=== PATIENT | female | born 2005 | race Caucasian/White ===

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

== ENCOUNTER 2023-07-13 13:28 | Outpatient (CLI) | payer BC, SELFPAY ==
--- NOTE | ~2023-07-13 | US_ITS ---
EXAMINATION: US thyroid DATE: 07/13/2023 14:31 INDICATION: Michelle thyroiditis. TECHNIQUE: Multiple ultrasound images of the thyroid were obtained. COMPARISON: None. FINDINGS: The right thyroid lobe measures 5.8 x 1.0 x 1.7 cm. The left thyroid lobe measures 4.8 x 0.8 x 1.5 c m. There is normal echotexture and echogenicity throughout the thyroid gland. No discrete nodules id entified. Normal vascular flow is present. IMPRESSION: 1. Normal thyroid. Reviewed, dictated and finalized at location E. IMPRESSION: 1. Normal thyroid.
== END 2023-07-13 13:29 | disposition home or self-care (01) ==
LOC: ANHIMG 13:29
PROVIDERS: PCP Family Medicine; Visit Provider Internal Medicine
DX: E06.3 Autoimmune thyroiditis (principal)
CPT/HCPCS: 76536

== ENCOUNTER 2024-10-09 13:19 | Emergency (ER) | payer OTHER, BC, SELFPAY ==
--- NOTE | ~2024-10-09 | CT_ITS ---
Non-contrast Head CT History: Head injury Technique: Axial non-contrast imaging of the brain was performed. Dose reduction technique was used on this scan by utilizing automated exposure control and iterative reconstruction technique. The dose -length product (DLP) was 605.33 mGy-cm. Findings: There is no evidence of intracranial hemorrhage, mass lesion, or acute infarct. Brain par enchyma appears normal. The ventricles and subarachnoid spaces are normal in size. The calvarium ap pears normal. The visualized paranasal sinuses and mastoid air cells are clear. Impression: No significant abnormality seen. Reviewed, dictated and finalized at location . Impression: No significant abnormality seen.
--- OUTSIDE RECORDS SUMMARY | 2024-10-09 13:23 | XMS_ITS | Data Portability ---
Author Organization [facility] Address [address] [place] [address] Assessment Encounter Date Assessment Date Assessment LastModified by Organization Details LastModified Time 11/16/2020 11/16/2020 discussed and encouraged to complete HPV series discussed healthy diet, exercise urine GC CT trich discussed elevated BP- stressed today, will monitor in future. Discussed the usage, side effects, risks, and benefits of OCP use. Questions answered. Prescription given for microgestin. She will start OCP with next menses and follow up for a med check in 4 mos. Not available 11/16/2020 17:05:22 03/08/2021 03/08/2021 Doing well on OCP Prescription refilled Questions answered FU for WWE in Oct depression precautions given [email or web address] Not available 03/09/2021 16:22:24 12/02/2021 12/02/2021 healthy female exam GC/CT/trich done declines further std testing pap at 19 contraception-oc p refilled. BP returned to normotensive after exam and rest. HPV done FU 1 year or prn [email or web address] Not available 12/02/2021 13:19:16 01/19/2023 01/19/2023 Annual gynecological exam performed. Patient will come back in a year unless there are new symptoms. [email or web address] Not available 01/19/2023 16:12:10 Plan of Treatment Reminders Order Date Submit Date Provider Last Modified By Organization Details Last Modified Time Details Appointments None recorded. Lab None recorded. Referral None recorded. Procedures None recorded. Surgeries None recorded. Imaging None recorded. Medication Orders Blisovi Fe 04/14 (28) 1 mg-20 mcg (21)/75 mg (7) tablet 2021 022 [facility] #[id number], [address], [place], [place], [id number], 13:20:43 Aurovela Fe 1-20 (28) 1 mg-20 mcg (21)/75 mg (7) tablet 2020 021 [facility] #[id number], [address], [place], [place], [id number], 17:24:26 Microgestin FE 1/20 (28) 1 mg-20 mcg (21)/75 mg (7) tablet 2020 021 [facility] #[id number], [address] , [place], [place], [id number], 17:05:45 Patient TargetsNo targets recorded. Patient InstructionsNo instructions recorded. Reason for Referral None Reported. Results Created Date Observation Date Name Description Value Unit Range Abnormal Flag Note LastModifiedBy Organization Detail LastModifiedTime 11/17/1911/16/2020 CT/GC AND TRICH OMONA S VAGIN ZAHRAA (RRNA ), URINE chlamydia trachomatis, PCR Negati ve negati ve Not Available [facility] (Lab) [address] [place], [address], 11/17/2020 14:25:01 11/17/19 21 11/16/2020 CT/GC AND TRICH OMONA S VAGIN ZAHRAA (RRNA ), URINE neisseria gonorrhoeae, PCR Negati ve negati ve Not Available [facility] (Lab) [address] [place], [address], 11/17/2020 14:25:01 11/17/19 21 11/16/2020 CT/GC AND TRICH OMONA S VAGIN ZAHRAA (RRNA ), URINE trichomonas vaginalis ribosomal RNA (rrna) Negati ve negati ve Not Available [facility] (Lab) [address], [place], [address], 11/17/2020 14:25:01 12/03/19 22 12/02/2021 CT/GC AND TRICH OMONA S VAGIN ZAHRAA (RRNA ), SWAB chlamydia trachomatis, PCR Negati ve negati ve Not Available [facility] [address] [place], [address], 12/03/2021 13:45:52 12/03/19 22 12/02/2021 CT/GC AND TRICH OMONA S VAGIN ZAHRAA (RRNA ), SWAB neisseria gonorrhoeae, PCR Negati ve negati ve Not Available [facility] [address] [place], [address], 12/03/2021 13:45:52 12/03/19 22 12/02/2021 CT/GC AND TRICH OMONA S VAGIN ZAHRAA (RRNA ), SWAB trichomonas vaginalis ribosomal RNA (rrna) Negati ve negati ve Not Available [facility] [address] [place], [address], 12/03/2021 13:45:52 Result Notes None recorded. Problems Name Problem SNOMED Code Status Onset Date Resolution Date Notes Provider Name and Address Organization Details Recorded Time Childhood obesity 774993207 Active 2020 Heaven Berry MD [address], [place], [address], [facility] 17:04:00 Dysmenorrh ea 429416810 Active 2020 Heaven Berry MD [address], [place], [address], [facility] 17:05:22 Vaccinatio n not done 471003428536 08 Active 2020 Heaven Berry MD [address], [place], [address], [facility] 1 17:05:25 Elevated blood-pres sure reading without diagnosis of hypertensi on 064194083 Active 2020 Heaven Berry MD [address], [place], [address], [facility] 17:05:29 Problem Notes None recorded. Medical Equipment None Reported. Allergies No known drug allergies Medications Name Sig Start Date Stop Date Status Note LastModified by Organization Details LastModified Time prednisone 20 mg tablet 12/18 completed Not Available Not Available Not Available acetaminoph en 300 mg-codeine 30 mg tablet TAKE 1 TO 2 TABLETS BY MOUTH EVERY 6 HOURS NEEDED FOR PAIN 12/18 completed Not Available Not Available Not Available ondansetron 8 mg disintegrat ing tablet DISSOLVE 1 TABLET ON THE TONGUE EVERY 8 HOURS NEEDED 03/08 completed Not Available Not Available Not Available amoxicillin 875 mg tablet TAKE 1 TABLET BY MOUTH TWICE DAILY FOR 10 DAYS 12/02 completed Not Available Not Available Not Available ibuprofen 600 mg tablet TAKE 1 TABLET BY MOUTH EVERY 6 HOURS FOR 5 DAYS THEN 1 TABLET EVERY 6 HOURS NEEDED FOR PAIN 12/18 completed Not Available Not Available Not Available albuterol sulfate HFA 90 mcg/actuati on aerosol inhaler INHALE 2 PUFFS BY MOUTH EVERY 4 TO 6 HOURS 20 MINUTES BEFORE EXERCISE NEEDED FOR COUGH OR WHEEZING active Not Available Not Available No t Available clobetasol 0.05 % scalp solution APPLY TO HAIR LOSS AREAS TWICE DAILY UNTIL RESOLVED active Not Available Not Available No t Available cefdinir 300 mg capsule TAKE ONE CAPSULE BY MOUTH EVERY 12 HOURS FOR 10 DAYS 12/02 completed Not Available Not Available Not Available doxycycline monohydrate 40 mg capsule,imm ediate - delay release TAKE 1 CAPSULE BY MOUTH EVERY DAY active Not Available Not Available No t Available Blisovi Fe 04/14 (28) 1 mg-20 mcg (21)/75 mg (7) tablet TAKE 1 TABLET BY MOUTH EVERY DAY 2023 active Not Available Not Available Not Avai lable Vitals Date Recorded Body height Body mass index (BMI) Body mass index (BMI) [Percentile] Per age and sex Body weight Systolic And Diastolic Systolic And Diastolic Provider Name and Address Organization Details Last Updated DateTime 1 154.94 cm 31.7 kg/m2 96 % 63931.5 2 g 145/84 mm[Hg] 140/78 mm[Hg] [facility] 1 16:43:58 Date Recorded Body height Body mass index (BMI) Body mass index (BMI) [Percentile] Per age and sex Body weight Systolic And Diastolic Systolic And Diastolic Systolic And Diastolic Provider Name and Address Organization Details Last Updated DateTime 2 154.94 cm 29.3 kg/m2 93 % 58521.8 2 g 153/123 mm[Hg] 140/90 mm[Hg] 122/78 mm[Hg] [facility] 2 13:00:55 Date Recorded Body height Body mass index (BMI) [Percentile] Per age and sex Body mass index (BMI) Body weight Systolic And Diastolic Provider Name and Address Organization Details Last Updated DateTime 01/19/2023 154.94 cm 95 % 32.3 kg/m2 44266.3 g 147/83 mm[Hg] [facility] 3 16:15:22 Date Recorded Body height Body mass index (BMI) [Percentile] Per age and sex Body mass index (BMI) Body weight Systolic And Diastolic Provider Name and Address Organization Details Last Updated DateTime 03/08/2021 154.94 cm 95 % 30 kg/m2 02517.1 9 g 124/84 mm[Hg] [facility] 1 16:49:44 Social History Question Answer Notes LastModified by Organizat ion Details LastModified Time Tobacco Smoking Status Never Smoker [facility] 01/19/2023 16:15:41 Do You Have An Advance Directive? No Information n ot available 01/19/2023 Are You Blind Or Do You Have Difficulty Seeing? No Information n ot available 01/19/2023 What Is Your Level Of Caffeine Consumption? Moderate Information not available 01/19/2023 How Much Tobacco Do You Chew? None Information not available 01/19/2023 In The 14 Days Before Symptom Onset, Have You Had Close Contact With A Laboratory-confirm ed COVID-19 While That Case Was Ill? No Information n ot available 01/19/2023 In The 14 Days Before Symptom Onset, Have You Had Close Contact With A Person Who Is Under Investigation For COVID-19 While That Person Was Ill? No Information not available 01/19/2023 Have You Been To An Area Known To Be High Risk For COVID-19? No Information not available 01/19/2023 Are You Deaf Or Do You Have Serious Difficulty Hearing? No Information not available 01/19/2023 What Type Of Diet Are You Following? REGULAR Information n ot available 01/19/2023 What Is The Highest Grade Or Level Of School You Have Completed Or The Highest Degree You Have Received? [id number] Information not available 01/19/2023 Are There Any Guns Present In Your Home? No Information not available 01/19/2023 Do You Use Protection During Sex? Usually Information not available 01/19/2023 Do You Use Your Seat Belt Or Car Seat Routinely? Yes Information not available 01/19/2023 Do You Have Smoke And Carbon Monoxide Detectors In Your Home? Yes Information not available 01/19/2023 How Much Tobacco Do You Smoke? No Information not available 01/19/2023 Do You Use Sunscreen Routinely? Yes Information not available 01/19/2023 Has Tobacco Cessation Counseling Been Provided? No Information not available 01/19/2023 Have You Used IV Drugs? No Information not available 01/19/2023 Sex: Unknown Functional Status Question Answer Note LastModified by Organizat ion Details LastModified Time Do you use any illicit or recreational drugs? No Information not available 11/16/2020 Do you or have you ever used any other forms of tobacco or nicotine? No Information not available 01/19/2023 What is your level of alcohol consumption? None Information not available 11/16/2020 Are you able to walk? YESWOREST Information not available 01/19/2023 What is your occupation? N/A Information not available 01/19/2023 What is your exercise level? Occasional Information not available 01/19/2023 Mental Status Question Answer Note LastModified by Organization D etails LastModified Time Do you feel stressed (tense, restless, nervous, or anxious, or unable to sleep at night)? [id number] Information not available 01/19/2023 Family History Relationship Description Onset Age of this Age Resolved Age Notes LastModified by Organization Details LastModified Time Mother Asthma [email or web address] Not available 16:36:07 Medical History Condition Response Allergies (Food, seasonal, environmental ) N Other N Blood Transfusion N Drug/Latex Allergies/Reactions N Breast Cancer N Dermatologic Disorders N Lung Disease N Defects or Inherited Disease N Breast Problem N Gestational Diabetes N Hematologic disorders N Anesthesia Complications N History of STI N Deep Vein Thrombosis N Polycystic ovary syndrome N Anxiety Disorder N Autoimmune disease N Arthritis N Infertility N Polyps N History of abnormal pap N Acid Reflux (GERD) N Cancer N Varicosities N Stroke N Neurologic/Epilepsy N Endometriosis N High Cholesterol N Headaches N Fibromyalgia N Kidney Disease N Heart Problems N Thyroid Problems N Kidney or Bladder Problems N GI Problems N Eating Disorder N Anemia N Art (IVF or FET) N Psychiatric Illness N Diabetes N Ovarian Cancer N Pulmonary (TB, Asthma) N Hepatitis/Liver Disease N No Past Medical History N Eczema N Urinary Tract Infection N Abuse/Domestic Violence N Asthma Y Trauma/Violence N Depression/ depression N Heart Disease N Pre-Eclampsia N Hypertension N Osteoporosis N Thrombophilias N Gynecological History Statement/Question Response Date of LMP 12/31/2022 On BCP's at Conception? N N Was last menstrual period normal Y STIs/STDs N HPV Vaccine Y Duration of Flow (days) 6 Current Control Method BCPs Date of control 11/25/2020 Frequency of Cycle (Q days) 6 Sexually Active? Y BCPs Age of first menstrual cycle 9 Date of Last Pap Smear Sexual Problems? N Desired Control Method BCPs LMP Definite N Obstetrics History GPAL:G 0 P 0 0 0 0 Past Encounters Encounter ID Performer Location Encounter Start Date Encounter Closed Date Diagnosis/Indication Diagnosis SNOMED-CT Code Diagnosis ICD10 Code Diagnosis Note [id number] Heaven Berry MD [place] [address],[place] [address] 11/16/2020 16:28:30 11/16/2020 23:35:44 Dysmenorrhea 720582350 N94.6 Initial pr escription of oral contraception 982150720 Z30.011 Vaccination not done 754 8278355 9108 Z28.9 Childhood obesity 348233 003 Z68.54 Elevated blood-pressure reading without diagnosis of hypertension 796686499 R03.0 Venereal d isease screening 468163465 Z11.3 [id number] Heaven Berry MD [place] [address],[place] [address] 03/08/2021 16:38:37 03/09/2021 18:01:34 Surveillance of oral contraception 784212437 Z30.41 Dysmenorrhea 253158359 N 94.6 Menorrhagia 941776924 N9 2.0 [id number] Heaven Berry MD [place] [address],[place] [address] 12/02/2021 12:36:20 12/02/2021 13:21:35 Gynecologic examination 07504339 Z01.419 Surveillan ce of oral contraception 963153504 Z30.41 Dysmenorrhea 139935148 N 94.6 [id number] JAKOB CHANEL MD [place] [address],[place] [address] 01/19/2023 15:42:27 01/23/2023 09:04:48 Gynecologic examination 35453609 Z01.419 [facility]- Cervical cancer screening: Pap smear not indicated (start 01/2024)- HPV immunizati on: received- STD testing: declined- hereditary cancer screening: does not qualify for testing Contracept ion care management 467280210 Z30.011 - continue Blisovi OCPs Health Concerns Section Related Observation LastModified by Organization Detai ls LastModified Time None Recorded Concern Status LastModified by Organization Details LastModified Time None Recorded Advance Directives Directive N: Payers Insurance Date Sequence Insurance Name Policy Number Policy Castillo Covered Member ID Castillo Member ID Guarantor Name 01/23/2023 1 [place] 105 [place] Loza [id number] [place] Loza 12/22/2022 1 [place] 105 [place] Loza [id number] Virginia Loza Notes Date Note Type Note Provider Name and Address Organization Details Recorded Time 11/16/2020 text/html Patient is a 15y o G0 who presents for menstural problem. She has been sexually active with one partner, not currently. USed condoms, never had std testing. Periods rebgular q 28 days, but always painful and getting worse. Last 2 mos have been unbearable, staying in bed for 2 days, can't function. Also fairly heavy. Wants for this. HPV vaccine:had first last year Depression:denies Domestic violence:denies exercise:y Heaven Berry MD [address], [place], [address], [facility] 11/16/2020 17:05:55 03/08/2021 text/html Pt is a 16yo G0 who presents for follow up OCP start in Oct for dysmenorrhea and menorrhagia. She states it is great- cramps and bleeding both much better. Family thinks she is more klein, but she just thinks she talks about it more. Denies depression/SI/HI. BP not elevated today. Lost 9#. Heaven Berry MD [address], [place], [address], [facility] 03/09/2021 16:22:36 12/02/2021 text/html Patient is a 16y o G0 who presents for an annual exam. on OCP for dysmenorrhea, doing really well. BPs last visit 140s/80s, states was nervous, and nervous today for first exam. 140/90. but after exam normotensive./]. Lost 13# since last year. last WWE-none sexually active-y HPV vaccine-y contraception-ocp seatbelts-y exercise-y depression-denies domestic violence-denies tobacco-n concerns-n Heaven Berry MD [address], [place], [address], [facility] 12/02/2021 13:20:45 01/19/2023 text/html Presents today f or her annual well-woman exam. Denies abnormal vaginal discharge. She is sexually active and denies dyspareunia. She is using Blisovi for contraception, and she states that she is satisfied with this method. She has not noticed any changes or masses in her breasts. Was just diagnosed with thyroid disease, has had hair loss. Concerned that she may need to change her OCPs with her thyroid issues. JAKOB CHANEL MD [address], [place], [address], [facility] 01/19/2023 17:19:56 OBGyn Episode No OBEpisode recorded.
--- OUTSIDE RECORDS SUMMARY | 2024-10-09 13:24 | XMS_ITS | Clinical Summary ---
Author Organization [facility] Address [address] [place] [address] Care Team Providers Care Music Video Producer Name Role Phone Violeta Jacinto MD Primary Care Provider [phone] Source Comments [facility],non-owned Affiliates and Associated Physician Practices is amultiple site organization consisting of ambulatory clinics and hospital sitesin [place], [place], [place] and [place]. This disclosure is being madepursuant to the Care Everywhere program and may not contain all information available regarding this patient. Last updated 17.[facility] Allergies Active Allergy Reactions Criticality Noted Date Comments Albumin Rash Low 05/31/2015 Medications * Be aware that medications may not be up to date on this document. Alwaysverify current medications with the patient. albuterol HFA (PROVENTIL;RADHA VIRAJ;PROAIR) 108 (90 BASE) MCG/ACT inhaler Inhale 2 Puffs by mouth every 6 hours as needed Active fexofenadine (TRISTIAN) 30 MG/5ML suspension Take 30 mg by mouth 2 times daily Active EPIPEN 2-MICHELE 0.3 MG/0.3ML auto-injector pen 2 04/23/2015 Active Active Problems Problem Noted Date Diagnosed Date Midline thoracic back pain 05/31/2015 Tension headache 05/31/2015 Overview (06/10/2015): History of headaches: For 3-6 months Frequency: Nearly daily for past month Location: Frontal, neck and spine Quality: pounding Onset/duration: Gradual/lasting hours to all day Pain severity is rated 8/10. Associated symptoms of NO photophobia, phonophobia, nausea, vomiting, facial pallor, periorbital discoloration, muscle weakness. + for neck pain, dizziness and blurry vision with headache. Visual changes or aura: Blurry vision. No aura Awaken from sleep: no Occur on weekends and weekdays: yes Caregiver can/cannot tell that child has a headache by appearance or behavior change: Yes in her eyes Triggers: sleep deprivation, exercise, foods, stress, school, noise--none identified Exercise makes the headache-worse Sleep makes the headache: better. Meds used, and dose -Aleve Personality changes or school performance issues since onset: no School days missed: There have been ( 0 ) school days missed in past 2 months due to [place]. Assessment & Plan (06/10/2015 2:15 PM CDT): Headaches, back pain, history of sinusitis and lump on back of head: Plan: Additional workup: MRI of spine-call for results 2-3 days after completed to discuss results Keep Headache diary for next 2 months. Please call or fax back to us so I can review your child's headache frequency and make improvements in his/her plan of care. Life habits that may worsen headaches: SLEEP-children and teens need between 7-11 hours of sleep each night. It is important to go to bed about the same time each night and get up at the same time each morning, both on weekends and week days. It maybe easier to enforce wake-up time than going to sleep time. Avoid electronics in bedroom. AVOID CAFFEINE DAILY OTHERS THINGS TO AVOID: Dehydration, loud noises, bright lights, certain smells, possible foods etc. These may make headaches worse or trigger a headache. EAT 3 MEALS A DAY. Do not skip meals such as breakfast. Drink water or other fluids (about 2 quarts per day). To avoid dehydration may need to take water bottle to school. Medications: Additional 10 days of Amoxicillin Abortive medications (help the pain go away): Continue Naproxen as needed for headache. Prophylactic medications (taken daily to help decrease the number of headaches): Deferred at this time. Follow-up visit in 3 month, or sooner as needed should symptoms worsen or fail to respond to treatment plan as outlined. Your provider can be reached at [phone] Make follow up appointment with PCP for about 3 weeks to check nodule on head and with eye doctor for vision check. 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 AM MACHINE TAPER Gender Identity Not on file Sexual Orientation Not on file Last Filed Vital Signs Vital Sign Reading Time Taken Comments Blood Pressure 106/60 05/31/2015 10:12 AM MACHINE TAPER Pulse - - Temperature - - Respiratory Rate - - Oxygen Saturation - - Inhaled Oxygen Concentration - - Weight 68.4 kg (150 lb 12.7 oz) 016 10:12 AM MACHINE TAPER Height 154.9 cm (5' 0.98) 05/31/2015 1 0:12 AM MACHINE TAPER Body Mass Index 28.51 05/31/2015 10:12 AM MACHINE TAPER Plan of Treatment Health Maintenance Due Date Last Done Comments HIV SCREENING 2018 HPV VACCINE (1 - 3-dose series) 2018 CHLAMYDIA/GONORRHEA SCREENING 2019 MENINGOCOCCAL (Group B) VACC INE SHARED DECISION-MAKING (1 of 2 - Standard) 2019 HEPATITIS C SCREENING 01/29/2021 DTAP/TDAP/TD VACCINES (1 - Tdap) 2022 HEPATITIS B VACCINE (1 of 3 - 19+ 3-dose series) 2022 COVID-19 VACCINE (1 - 2023-2 5 season) 2023 DEPRESSION SCREENING 03/26/2024 INFLUENZA VACCINE (#1) 2024 ZOSTER VACCINE (1 of 2) 2053 HIB VACCINE Aged Out No longer eligi ble based on patient's age to complete this topic MENINGOCOCCAL GROUPS A/C/Y/W VACCINE Aged Out No longer eligible b ased on patient's age to complete this topic PNEUMOCOCCAL VACCINE Aged Out No long er eligible based on patient's age to complete this topic Insurance Care Teams Music Video Producer Relationship Specialty Start Date End Date Violeta Jacinto MD [address] [place] [address] [address] [place] [address] PCP - General Pediatrics 05/18/15
[2024-10-09 13:37] VITALS: BP 121/67; PULSE 95; RESP 16; TEMP 36.6; O2SAT 100
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
[2024-10-09 14:47] VITALS: BP 118/76; PULSE 87; RESP 16; TEMP 36.6; O2SAT 98
== END 2024-10-09 14:49 | disposition home or self-care (01) ==
LOC: ANHED 14:42
PROVIDERS: Emergency Provider Family Medicine; PCP Family Medicine
DX: S09.90XA Unspecified injury of head, initial encounter (principal); E06.3 Autoimmune thyroiditis; Z86.16 Personal history of COVID-19; W22.8XXA Striking against or struck by other objects, initial encounter
CPT/HCPCS: 70450; 99284

== ENCOUNTER 2024-11-24 21:54 | Emergency (ER) | payer BC, SELFPAY ==
--- OUTSIDE RECORDS SUMMARY | 2008-11-04 06:15 | XMS_ITS | Continuity of Care Document ---
Author Organization [facility] [place] [address] [place] [address] [address] [place] [address] Phone Care Team Providers Care Radio Interference Supervisor Name Role Phone Daniel OD, Young Unavailable Unavailable Procedures Procedure Date Eye Exam & Treatment Refraction Advance Directives Directive Yes / No Effective Date File Name No Information Encounters Encounter Description Practice Location Reason(s) For Visit Diagnoses Date Provider Providers Copied on Encounter [facility], [address], [place], [place], [id number], [place] tel:[phone] [facility] [place] No Information 2-200 9 Daniel OD Young. [address] , [address], [place], [address], [place]. tel:[phone] Family History Family Member Type Diagnosis Age At Onset No Information Payers Payer name Insurance type Covered democrat ID Authoriza tion(s) [place] [id number] Medicaid [facility] [id number] Social History Type Description Quantity Date Captured Comments Sex Female Smoking Status No Information Chief Complaint And Reason For Visit No Information Reason For Referral Reason For Referral No Information History Of Present Illness Encounter Date Complaint History Of Prese nt Illness No Information Functional Status Date Functional Assessmen t No Information Instructions Date Instruction Additional Infor mation No Information Assessments Type Assessment Date No Information Patient Care Teams Name Effective Dates (start - stop) Status Members No Information
[2024-11-24 22:06] VITALS: BP 125/83; PULSE 91; RESP 12; TEMP 36.6; O2SAT 100
[2024-11-24] MEDS: LIDO 1%/EPINEPHRINE 1:100,000 20 ML VIAL 10 ML INFILTRATE (23:08)
--- NOTE | 2024-11-24 23:10 | PC.NURSE ---
EDP VORB lido w epi, 11 blade, and lac tray needed at bedside. Medication ordered under EPD Liza. This policy writer sales notified EDP of supplies and medication at bedside.
--- OUTSIDE RECORDS SUMMARY | 2024-11-24 23:19 | XMS_ITS | Clinical Summary ---
Author Organization [facility] Address [address] [place] [address] Care Team Providers Care Manager Cargo Name Role Phone Violeta Jacinto MD Primary Care Provider [phone] Source Comments [facility],non-owned Affiliates and Associated Physician Practices is amultiple site organization consisting of ambulatory clinics and hospital sitesin [place], [place], [place] and [place]. This disclosure is being madepursuant to the Care Everywhere program and may not contain all information available regarding this patient. Last updated 17.[facility] Allergies Active Allergy Reactions Criticality Noted Date [...] outlined. Your provider can be reached at [phone] Make follow up appointment with PCP for [...] on file Legal Sex Female 5:43 AM [employer]RIAGE [employer] FAMILY [employer] WORK[employer] Gender Identity Not on file Sexual Orientation Not on file Last Filed Vital Signs Vital Sign Reading Time Taken Comments Blood Pressure 106/60 05/31/2015 10:12 AM [employer]ILY [employer] WORK[employer] Pulse - - Temperature - - Respiratory Rate - - Oxygen Saturation - - Inhaled Oxygen Concentration - - Weight 68.4 kg (150 lb 12.7 oz) 016 10:12 AM [employer]RIAGE [employer] FAMILY SOCIAL WORKER Height 154.9 cm (5' 0.98) 05/31/2015 1 0:12 AM [employer] FAMILY [employer]IAL WORKER Body Mass Index 28.51 05/31/2015 10:12 AM [employer]ILY [employer] WORKER Plan of Treatment Health Maintenance Due Date [...] to complete this topic Insurance Care Teams Manager Cargo Relationship Specialty Start Date End Date Violeta Jacinto MD [address] [place] [address] [address] [place] [address] PCP - General Pediatrics 05/18/15
--- NOTE | 2024-11-24 23:42 | ED_ITS ---
HPI - Skin/Abscess/Foreign Bdy General Chief complaint: Skin/Abscess/Foreign Body Stated complaint: skin infection Time Seen by Provider: 11/24/24 22:49 History of Present Illness HPI narrative: 19-year-old female presents emergency department with concerns for 2 abscesses to her left upper thigh with surrounding redness she noticed yesterday. Patient states yesterday. Began working for today the redness continued to spread. She states area is red and warm to the touch. She denies fever spontaneous drainage. She states she does have issues with abscesses to her groin into her axilla is concerned she may have undiagnosed a chest. She has been using topical mupirocin without improvement. 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,adult History of COVID-19 Otitis media Surgical History Surgical History No pertinent past surgical history Family History Family History Mother History of myocardial infarction Other Asthma Thyroid disorder Social History Social History Smoking status: Never smoker Alcohol intake: never Substance use: never Substance use type: does not use Do You Feel Safe in your Home?: Yes Lack of Transportation: No Lack of Food: Never True Current Housing: I Have Housing Concerned About Future Housing: No Difficulty Paying Gas/Electric Bills: No Difficulty Paying for Meds: No Currently Unemployed: No Education: Associate Degree Difficulty w/ Childcare or Family Care: No Living arrangements: with family Occupation/Education: student Gender identity (if verbalized by the patient): Female Spiritual care concerns: No Exam Narrative: GENERAL: Well-appearing, well-nourished, and in no acute distress. HEAD: Normocephalic, atraumatic. EYES: EOMI. ENT: Nares clear, no rhinorrhea or epistaxis. Mucous membranes moist. NECK: Supple. CHEST: Clear to auscultation. No respiratory distress. HEART: Regular rate and rhythm. No murmur heard. Normal peripheral pulses. EXTREMITIES: Normal range of motion. No edema. SKIN: 7 cm x 11 cm area of blanching erythema and warmth to the medial aspect of the left superior thigh with 2 one cm areas of fluctuation. No spontaneous drainage. No crepitus. No necrosis NEURO: No focal deficits. Alert and oriented x3 Course Vital Signs Vital signs: Vital Signs Temperature 97.8 F 11/24/24 22:06 Pulse Rate 91 11/24/24 22:06 Respiratory Rate 12 11/24/24 22:06 Blood Pressure 125/83 11/24/24 22:06 Pulse Oximetry 100 11/24/24 22:06 Oxygen Delivery Room Air 11/24/24 22:06 Temperature 97.8 F 11/24/24 22:06 Pulse Rate 91 11/24/24 22:06 Respiratory Rate 12 11/24/24 22:06 Blood Pressure 125/83 11/24/24 22:06 Pulse Oximetry 100 11/24/24 22:06 Oxygen Delivery Room Air 11/24/24 22:06 Procedures Abscess I/D upper extremity: Date of Incision: 11/24/24 Time of Incision: 23:48 Side (if applicable): left Local Anesthetic: lidocaine 1% and with epi Amount of anesthesia used (mL): 1 Technique: incised with #11 blade Amount of fluid expressed (mL): 2 Packing used?: none I&D Results: Pus and Blood MDM - Skin/Abscess/Foreign Bdy MDM Narrative Medical decision making narrative: 19-year-old female presents to the emergency department with concerns for 2 abscesses and surrounding cellulitis to her left upper thigh for the past day. Triage vitals are stable. Exam is notable for the above. Shared decision making regarding starting antibiotics verses I&D followed by antibiotics. Leo salazar like to attempt I and D. local anesthetic applied and 1 of the abscesses was incised with an 11 blade with drainage of purulent fluid. Patient declined drainage for the 2nd abscess. She was started on clindamycin and the area of cellulitis was marked with a skin marker. The patient was advised to follow-up closely with her PCP and given strict ED return precautions. She is agreeable with the plan verbalized understanding. Discharged in stable condition. Discharge Plan Discharge Clinical Impression: Abscess Cellulitis Qualifiers: Site of cellulitis: extremity Site of cellulitis of extremity: lower extremity Laterality: left Qualified Code(s): L03.116 - Cellulitis of left lower limb Patient Disposition: Home Condition: Stable Instructions: Antibiotic Form, Cellulitis (ED), Abscess (ED) Additional Instructions: Please take antibiotics as directed. Follow-up closely with her primary care provider. Return to the emergency department if you develop a fever, increased redness or other concerning symptoms. Patient Language: Swedish Prescriptions: New clindamycin HCl [Cleocin HCl] 300 mg capsule 300 mg PO Q6H 7 Days Qty: 28 0RF No Action doxycycline hyclate 100 mg tablet PO DAILY clobetasol 0.05 % solution 1 applic topical BID mupirocin [Centany] 2 % ointment 1 applic topical BID Qty: 22 0RF albuterol sulfate 90 mcg/actuation HFA aerosol inhaler 1 inh inhalation Q4H Qty: 6.7 0RF Follow-up/Referrals: Javier Garcia MD [Primary Care Provider, Family Practice]
[2024-11-24] MEDS: CLINDAMYCIN HCL 150 MG CAP 450 MG PO (23:48)
[2024-11-24 23:52] VITALS: BP 140/77; PULSE 92; RESP 20; O2SAT 100
== END 2024-11-24 23:53 | disposition home or self-care (01) ==
PROVIDERS: Emergency Provider Physician Assistant; PCP Family Medicine
DX: L03.116 Cellulitis of left lower limb (principal); E06.3 Autoimmune thyroiditis
CPT/HCPCS: 10060; 99283; J2004